=== PATIENT | female | born 1980 ===

== ENCOUNTER 2018-12-21 09:03 | Outpatient (CLI) | payer OTHER | END 2018-12-21 09:04 | disposition home or self-care (01) | LOC: C.LAB 09:03 | DX: Z00.01 Encounter for general adult medical examination with abnormal findings (principal) ==

== ENCOUNTER 2019-01-27 08:26 | Outpatient (CLI) | payer OTHER | END 2019-01-27 08:27 | disposition home or self-care (01) | LOC: C.USIC 08:26 ==